=== PATIENT | male | born 1950 | race Caucasian/White ===

== ENCOUNTER → 2016-10-30 | Outpatient (CLI) | payer BC ==
[~2016-10-30] MED LIST: ASPCH81X PO; CHOL100010 PO; SIMV20TA2 PO; VITA400C15 PO
--- NOTE | 2016-10-30 15:29 | DIAGNOSTIC IMAGING REPORT ---
TWO VIEW CHEST CLINICAL HISTORY: Cough. FINDINGS: PA and lateral chest radiographs are compared to study dated 06/21/2015. The heart is mildly enlarged. The pulmonary vasculature is noncongested. Platelike atelectasis is present at both lung bases. There is no airspace consolidation typical for pneumonia or pleural effusion. There is no pneumothorax. The bony thorax appears intact. IMPRESSION: Mild cardiac enlargement and bibasilar atelectasis. No acute cardiopulmonary abnormality is seen. Electronically signed by: Jatin Bruner M.D. 10/30/2016 3:28 PM Dictated Date/Time: 10/30/2016 3:27 PM
== END | disposition home or self-care (01) ==
LOC: C.RAD1850 15:15
PROVIDERS: ATTEND Family Medicine
DX: R05 Cough (principal)

== ENCOUNTER 2019-04-23 04:55 | Inpatient (IN) ==
--- NOTE | 2019-04-02 15:57 | PAT Medication Instructions ---
Medication Instructions Date of Service April 02, 2019 Home Medications aspirin [Aspirin Low Dose] 81 mg PO Q2D atorvastatin 20 mg PO HS cholecalciferol (vitamin D3) [Vitamin D3] 2,000 unit PO Q2D ranitidine HCl 150 mg PO QAM Continue as directed aspirin [Aspirin Low Dose] 81 mg PO Q2D DO NOT take the morning of surgery cholecalciferol (vitamin D3) [Vitamin D3] 2,000 unit PO Q2D ranitidine HCl 150 mg PO QAM Take evening before surgery atorvastatin 20 mg PO HS Other Notes If you have any questions please call us at [phone] or [phone] or [phone] or [phone]
--- NOTE | 2019-04-04 10:30 | Anesthesiology Consultation ---
Date of Service April 04, 2019 Assessment & Plan (1) Encounter for pre-operative examination: - PCP: 03/28/19: Hernandez clearance for non-cardiac exam shows "low risk for adverse events." ASCVD score shows intermediate risk for 10 year cardiac events." Chart Review Chart Review: Pending: Refer to Additional Notes / Consult section (pending preop testing (labs, CXR)) and Patient seen in Pre Admission Testing Teaching & Discussion Pre-Anesthesia Teaching/Discussion Notes: Instructed NPO after midnight before surgery,except medications with 15 cc of water. Medication instructions provided according to the PAT guidelines. History Surgery Operation Date: 04/23/19 09:00 Proposed Procedures p Left Total Knee Arthroplasty - Julio Raymundo MD Height/Weight Height: 6 ft Weight: 100.2 kg Allergies Allergy/AdvReac Type Severity Reaction Status Date / Time calamine Allergy Unknown worsened Verified 03/31/19 10:22 rash Medications Home Medications Medication Instructions Recorded Confirmed Last Taken aspirin [Aspirin Low Dose] 81 mg PO Q2D 03/31/19 03/31/19 Unknown atorvastatin 20 mg PO HS 03/31/19 03/31/19 Unknown cholecalciferol (vitamin D3) 2,000 unit PO Q2D 03/31/19 03/31/19 Unknown [Vitamin D3] ranitidine HCl 150 mg PO QAM 03/31/19 03/31/19 Unknown Past Medical History Medical History CVA (cerebral vascular accident) evidence of old event noted on MRI at age 17= no residual effects Crohn's disease stable Deep vein thrombosis 15+ years ago (LLE) s/p traveling long distance- AC x 6 months; 2011 s/p right knee surgery- AC x 6 months GERD (gastroesophageal reflux disease) controlled Hyperlipidemia Pulmonary embolism 15+ years ago s/p traveling long distance- AC x 6 months Exercise / Class Metabolic Activity II 4-5 Yardwork/Stairs/Walk up hill Past Family History Family History Father Family history of diabetes mellitus Brother FHx: prostate cancer Hodgkin disease Sister FHx: thyroid cancer Other No family history of adverse response to anesthesia Past Surgical History Surgical History H/O hemorrhoidectomy H/O knee surgery right knee tendon and quadricep repair (2011) H/O reduction of closed dislocation left shoulder H/O thumb surgery bilateral History of colonoscopy History of detached retina repair bilateral History of nasal septoplasty History of tonsillectomy x2 S/P ear surgery stapedectomy S/P inguinal hernia repair bilateral S/P tendon repair ring finger tendon repair Past Anesthesia History No Hx of Anesthesia Complications (except PONV x 1 episode) and No Family Hx of Anesthesia Complications History of PONV History of PONV (x 1 episode) and Hx of Motion Sickness (remote hx) Social History Smoking Status: Former smoker tobacco type: cigarettes Do You Dip or Chew Tobacco: No Smoking End Date: Quit 1978 Hx Alcohol Use: Yes Alcohol type: wine alcohol intake frequency: a few times a week Hx Substance Use: No substance use type: does not use Review of Systems Reflux controlled. URI symptoms significantly improved. Patient denies chest pain, shortness of breath, dyspnea on exertion, wheezing, palpitations. Physical Exam Vital Signs VITALS BP 118/79 P 83 TEMP 98.1 SP02 93%RA RESP 16 PHYSICAL Full neck and c-spine range of motion. Full TMJ range of motion. TMD 3 finger breaths Mallampati Score 1 Dentition: missing molar, crowns on sides/upper front left Lungs: clear throughout to auscultation Cardiac: regular rate and rhythm, no murmurs noted Spine: normal Carotid arteries: negative bruit Extremities: no edema Testing Laboratory Results 03/27/19 NA 141 K 4.2 CL 108H HCO3 25 BUN 17 CREAT 0.91 GLUCOSE 94 HGBA1C 5.6% Electrocardiogram Date: 12/27/18 SR with PAC's at 98bpm. Suggestive RVCD
--- NOTE | 2019-04-04 11:22 | XRay Report ---
XR chest Pre-admission PA/Lat CLINICAL HISTORY: 69 years-old Male presenting with preoperative assessment. TECHNIQUE: PA and lateral views of the chest were obtained. COMPARISON: 10/30/2016. FINDINGS: Cardiomediastinal silhouette normal. Lungs mildly hyperinflated. No focal opacity. No pleural effusio n or pneumothorax. On the exaggerated thoracic kyphosis with a mild compression deformity at the thor acolumbar junction similar to prior exam. Upper abdomen normal. IMPRESSION: 1. No acute cardiopulmonary disease. Electronically signed by: Luis Enrique Gupta M.D. 04/04/2019 11:20 AM
[2019-04-04 12:17] LABS: Basophils # (auto) 0.02 K/uL (0-0.2); Basophils % (auto) 0.3 %; Eosinophils # (auto) 0.24 K/uL (0-0.5); Eosinophils % (auto) 3.6 %; Hematocrit (blood only) 45.3 % (42-52); Immature Granulocytes # (auto) 0.01 K/uL (0.00-0.02); Immature Granulocytes % (auto) 0.2 %; Lymphocytes # (auto) 1.24 K/uL (1.2-3.4); Lymphocytes % (auto) 18.8 %; Mean Corpuscular Hemoglobin 32.9 pg (25-34); Mean Corpuscular Hgb Conc 35.3 g/dL (32-36); Mean Corpuscular Volume 93.2 fL (80-100); Mean Platelet Volume 10.2 fL (7.4-10.4); Monocytes # (auto) 0.58 K/uL (0.11-0.59); Monocytes % (auto) 8.8 %; Neutrophils # (auto) 4.49 K/uL (1.4-6.5); Neutrophils % (auto) 68.3 %; Platelet Count 182 K/uL (130-400); RDW Coefficient of Variation 12.8 % (11.5-14.5); RDW Standard Deviation 43.7 fL (36.4-46.3); Red Blood Count 4.86 M/uL (4.7-6.1); White Blood Count 6.58 K/uL (4.8-10.8)
[2019-04-04 12:18] LABS: Appearance Urine Clear (Clear); Bilirubin Urine Negative (Negative); Blood Urine Negative (Negative); Color Urine Yellow; Glucose Urine UA Negative (Negative); Ketones Urine Negative (Negative); Leukocyte Esterase Urine Negative (Negative); Nitrite Urine Negative (Negative); Protein Urine Negative (Negative); Specific Gravity Urine 1.022 (1.000-1.030); Urobilinogen Urine Negative (Negative); pH Urine 5.5 (4.5-7.5)
[2019-04-04 12:34] LABS: INR 1.1 (0.9-1.1); Partial Thromboplastin Ratio 0.9; Partial Thromboplastin Time 24.5 Seconds (21.0-31.0); Prothrombin Time 10.8 Seconds (9.0-12.0)
--- NOTE | 2019-04-08 16:39 | History and Physical Report ---
DATE OF ADMISSION: 04/23/2019 CHIEF COMPLAINT: Left knee pain. HISTORY OF PRESENT ILLNESS: This 69-year-old white male presents to the office with complaints of longstanding history of left knee pain. It has become worse with time. The symptoms have been present for over 2 years. It is worse when he sits or rises from a chair. He also has significant difficulty going up and down steps. No pain at rest. Pain is affecting his ADLs. No numbness or tingling. He notes occasional night pain. No significant intraarticular effusions. He has tried conservative care measures including activity modification, oral pain medication, and oral anti-inflammatories without lasting relief. He elects to proceed with left total knee arthroplasty in hopes of alleviating his discomfort. No numbness or tingling. Preoperative imaging has been obtained. PAST MEDICAL HISTORY: Significant for elevated cholesterol, history of PE in 2002, history of DVT in 2011, recent cold, history of stroke at age 17 in 1966, GERD, history of psoriasis, decreased hearing, seborrheic keratosis, history of skin cancer, Crohn's disease, benign paroxysmal positional vertigo, and dysmetabolic syndrome X. PAST SURGICAL HISTORY: Right ring finger surgery x2, tonsillectomy, herniorrhaphy x2, hemorrhoidectomy, bilateral thumb surgery, right knee quadriceps tendon repair, stapedectomy, dental extractions, vein stripping, appendectomy, colonoscopy. FAMILY HISTORY: Significant for anemia, aortic aneurysm in his father, aplastic anemia, arthritis, brain aneurysm in his brother, cancer, Crohn's disease, stroke, diabetes, heart disease, hemochromatosis, hypertension, Hodgkin's disease in his brother, prostate cancer, stomach cancer in his father, stroke in his brother and father, throat cancer in his brother and thyroid cancer in his sister. Sister, father, brother and mother are all . ALLERGIES: NKDA. CURRENT MEDICATIONS: Aspirin 81 mg every other day, atorvastatin 20 mg p.o. at bedtime, Excedrin p.r.n., ibuprofen 400 mg q. 6 hours p.r.n. pain, Vitamin D3 daily. SOCIAL HISTORY: The patient is . Employed. No tobacco use, quit in 1978. Occasional ETOH use. REVIEW OF SYSTEMS: A total of 10 systems are reviewed and are significant only for above stated conditions. PHYSICAL EXAMINATION: VITAL SIGNS: Temperature 36.6, pulse 88, BP 118/82, O2 sat 95% on room air, height 179.5 cm, weight 100.8 kilograms. GENERAL: Well-developed, well-nourished elderly white male in no acute distress. Sitting in a chair. Alert and oriented. SKIN: Warm and dry with good turgor. No rashes or lesions. No ecchymosis or erythema. HEENT: Normocephalic, atraumatic. Eyes PERRLA, EOMI. Nares patent bilaterally without turbinate enlargement. Oropharynx without erythema or exudate. No lesions noted. Uvula midline. Oral mucosa moist. Hearing aids are present. HEART: RRR. No MGR. LUNGS: Clear to auscultation bilaterally. No crackles, rhonchi or wheezing. Good air movement. ABDOMEN: Bowel sounds present x4, soft, nontender. No organomegaly. No masses. MUSCULOSKELETAL: The patient has full terminal extension of the left knee. Flexion to greater than 100 degrees. Strength is 5/5 with good quad tone. No significant intraarticular effusion today. Strength is 5/5 for resisted flexion and extension. He has focal discomfort with palpation over the medial joint line. No lateral joint line discomfort today. Peripatellar discomfort with crepitus associated with motion. Normal MCL and LCL stressing. No laxity. No defect in the patellar tendon or quadriceps tendon. Ambulatory with a normal gait. NEUROLOGIC: Cranial nerves II through XII are intact. Gross sensation is intact across the left leg by soft touch. Peripheral pulses are 2+. DATA: Radiographic imaging previously obtained shows medial joint space narrowing. He has bone on bone in the patellofemoral compartment. There is end-stage DJD. Periarticular osteophytes and subchondral sclerosis are also noted. Chondrocalcinosis is present within the compartments. IMPRESSION: Left knee end-stage degenerative joint disease. PLAN: Postoperative prescriptions for Percocet and Coumadin will be provided at discharge from the hospital. Anticipate discharge to home with home health services. TXA will be used topically given his previous PE and DVT. Prescription was provided for a walker. Preoperative lab work and chest x-ray have been ordered. Preoperative EKG was already obtained by his PCP. Medical clearance has already been obtained.
[2019-04-23] MEDS ORDERED: LR 60ML/HR IV SCH (06:00)
[2019-04-23] MEDS ORDERED: TRANEXAMIC ACID 1,000 MG x 1 **For Topical Use TOP SCH (06:00)
[2019-04-23] MEDS ORDERED: ROPIVACAINE 0.5% HCL/PF 150 MG, BUPIVACAINE 0.5% MPF 30 ML, EPINEPHrine 0.15 MG, Ketoro... INFIL SCH (06:00)
[2019-04-23] MEDS ORDERED: LR 500ML BOLUS, THEN 15ML/HR IV SCH (06:00)
[2019-04-23] MEDS ORDERED: CEFAZOLIN 2000MG 2,000 MG/15 ML SYR IV SCH (06:00)
[2019-04-23] MEDS ORDERED: BUPIVACAINE 0.5 % 5 MG/1 ML PF 10ML VIAL ONE (06:24)
[2019-04-23] MEDS ORDERED: ROPIVACAINE 0.5% 5 MG/ML 30 ML VIAL ONE (06:25)
[2019-04-23] MEDS ORDERED: ORTHO JOINT ANESTHETIC ONE (06:36)
--- NOTE | 2019-04-23 06:36 | History & Physical Bridge Note ---
Date of Service April 23, 2019 History & Physical Bridge Note I have examined the patient, reviewed the History & Physical and in the interval since the performance of the History & Physical I have noted the following changes of clinical significance:consent obtained. no changes noted
[2019-04-23] MEDS ORDERED: MIDAZOLAM HCL 1 MG/ML 2ML VIAL ONE (06:40)
[2019-04-23] MEDS ORDERED: KETOROLAC 30 MG/ML VIAL IV PRN (07:00)
[2019-04-23] MEDS ORDERED: HYDROmorphone INJ 1 MG/ML SYRINGE IV PRN (07:00)
[2019-04-23] MEDS ORDERED: ePHEDrine sulfate 50 MG/ML AMP IV PRN (07:00)
[2019-04-23] MEDS ORDERED: ATROPINE SULFATE 0.1 MG/ML 10ML SYR IV PRN (07:00)
[2019-04-23] MEDS ORDERED: ONDANSETRON INJ 2 MG/ML 2 ML VIAL IV PRN ×2 (07:00→09:29)
[2019-04-23] MEDS ORDERED: KETAMINE HCL INJ 50 MG/ML 10 ML VIAL ONE (07:17)
[2019-04-23] MEDS ORDERED: PROPOFOL IV EMULSION 10 MG/ML 20 ML VIAL IV ONE ×2 (07:31→07:55)
[2019-04-23] MEDS ORDERED: GLYCOPYRROLATE 0.2 MG/ML VIAL ONE (07:31)
[2019-04-23] MEDS ORDERED: LIDOCAINE HCL 2% 2 ML VIAL/AMP(20MG/ML) INFIL ONE (07:31)
[2019-04-23] MEDS ORDERED: fentaNYL citrate 100 MCG/2 ML VIAL ONE (08:08)
--- NOTE | 2019-04-23 08:29 | Post Operative Brief Note ---
Immediate Post Op Note v1 Date of Surgery April 23, 2019 Pre & Post Diagnosis Operation Date: 04/23/19 07:00 Pre-Op Diagnosis: Left Knee End-Stage Degenerative Joint Disease Post-Op Diagnosis: Left Knee End-Stage Degenerative Joint Disease I identified the patient and participated in the time-out.: Yes Procedure Operation Date: 04/23/19 07:00 Actual Procedures p Left Total Knee Arthroplasty(Left) - Julio Raymundo MD Surgeon Julio Raymundo MD Hand Drawer In ghada/kamar Estimated Blood Loss 100 Findings Consistent with Post-Op Diagnosis
--- NOTE | 2019-04-23 08:33 | Operative Report ---
Post Operative Report Pre & Post Diagnosis Operation Date: 04/23/19 07:00 Pre-Op Diagnosis: Left Knee End-Stage Degenerative Joint Disease Post-Op Diagnosis: Left Knee End-Stage Degenerative Joint Disease I identified the patient and participated in the time-out.: Yes Procedure Operation Date: 04/23/19 07:00 Actual Procedures p Left Total Knee Arthroplasty(Left) - Julio Raymundo MD Surgeon Julio Raymundo MD Verification Manager ghada/kamar Estimated Blood Loss 100 Findings Consistent with Post-Op Diagnosis Specimens as per the procedure notes Complications none Disposition Accompanied Patient To Recovery: Yes Disposition: Recovery Room Description of Procedure Supine, standard prep and drape, tourniquet control, time out Left Total Knee Arthroplasty Please see Dr Raymundo's procedure notes for specific details I was present throughout the case, assisted for wound closure and transferred the patient to PACU in stable condition I attest to the content of the Intraoperative Record and any orders documented therein. Any exceptions are noted below.
--- NOTE | 2019-04-23 08:39 | Operative Report ---
Post Operative Report Pre & Post Diagnosis Operation Date: 04/23/19 07:00 Pre-Op Diagnosis: Left Knee End-Stage Degenerative Joint Disease Post-Op Diagnosis: Left Knee End-Stage Degenerative Joint Disease I identified the patient and participated in the time-out.: Yes Procedure Operation Date: 04/23/19 07:00 Actual Procedures p Left Total Knee Arthroplasty(Left) - Julio Raymundo MD Surgeon JUAN ALBERTO Raymundo MD It Application Development Manager ghada/kamar Estimated Blood Loss 100 Findings Consistent with Post-Op Diagnosis Specimens see operative report Drains none Complications none Disposition Accompanied Patient To Recovery: Yes Disposition: Recovery Room Indications This 69-year-old white male presented to the office with complaints of intractable left knee pain. He had left knee pain for several years. Pain became worse with time. He tried conservative care measures without lasting improvement. He elected to proceed with surgical intervention after being educated about potential risks and outcomes. Preoperative imaging was obtained. Description of Procedure Patient was administered a spinal anesthetic and then taken to the operating room where he was given sedation. He was prepped and draped in the usual sterile fashion. Please see Dr. Raymundo's operative report for specifics of the procedure. I was present for the entire case from initial patient positioning through final wound closure. Assistance was provided in tissue retraction, hemostasis, trial implant placement, final implant placement, and fi nal wound closure. Patient was taken to the recovery room in satisfactory condition. I attest to the content of the Intraoperative Record and any orders documented therein. Any exceptions are noted below.
--- NOTE | 2019-04-23 08:41 | Operative Report ---
DATE OF OPERATION: 04/23/2019 PREOPERATIVE DIAGNOSES: Osteoarthritis, left knee, severe patellofemoral disease. POSTOPERATIVE DIAGNOSES: Osteoarthritis, left knee, severe patellofemoral disease. OPERATION PERFORMED: Cemented left total knee replacement. PERIOPERATIVE SITUATION: Medically cleared male who has had decades of conservative management for his left knee pain. At this point in time, he is at his wits end and states he cannot continue to endure the pain that he has. His x-rays reveal severe patellofemoral disease, moderate tibial femoral compartment disease. DESCRIPTION OF PROCEDURE: The patient was appropriately identified, site verified, consent verified. Antibiotics confirmed as being given. The left lower extremity was prepped and draped in usual routine fashion. Tourniquet inflated to 300 mmHg after exsanguination of limb with a rubber Esmarch bandage for a total of about 50 minutes. Midline exposure utilized. Parapatellar arthrotomy performed. Synovectomy completed. Minimal lateral release required knee flexed grade 4 disease over the entire anterior distal femur and the entire patella with marked tracking and grooving on both surfaces. There was grade 4 disease of the weightbearing surface of lateral femoral condyle. The medial compartment was relatively well preserved. The menisci were excised and cruciates were excised. The tibia was subluxated. Distal femur was then resected 12 mm, proximal tibia 4 mm, the extension gap was excellent. Femur was sized between a 5 and 4, was measured 5 cut 4. There was no notching. The flexion gap was then checked. It was excellent. The box cut was then made and a size 4 fit well. The tibia was then broached and reamed to size 4 and a 10 mm spacer offered excellent stability throughout the entire range including mid range flexion. Patella tracked well. The patella was resected leaving 16 mm and a 41 seating trial made and then tracked well. The knee was then injected with the Orthomix. All implants were removed. Posterior capsule injected, knee irrigated with TXA for 2 minutes and then Pulsavac and Betadine, then Pulsavac and then the permanent implants cemented into position, tibia, femur and patella in that sequence. After 12 minutes, the tourniquet deflated. Bleeding points controlled with electrocautery. After 2 more minutes and the knee was then flexed. The spacer removed. The wound irrigated. Minor cement removal required and the permanent liner seated. The knee irrigated one more time with Betadine Pulsavac and then closed with #2-0 Vicryl and stainless steel clips. Appropriate dressing applied. ESTIMATED BLOOD LOSS: 100 mL. PATHOLOGY: Pending on bone. DVT prophylaxis with Eliquis starting tomorrow 24 hours postop. The patient has a remote history of DVT. SUMMARY OF IMPLANTS: Size 4 posterior cruciate substituting femur, size 4 mobile bearing tray, size 41 patella, size 4 spacer, 10 mm thick posterior cruciate substituting, 2 bags of Palacos G cement. Again operation is cemented left total knee replacement and procedure as noted. I attest to the content of the Intraoperative Record and any orders documented therein. Any exception s are noted below.
--- NOTE | 2019-04-23 08:54 | XRay Report ---
LEFT KNEE 2 VIEWS History: Left total knee arthroplasty. Degenerative arthritis. Postop. FINDINGS: The patient is status post a left total knee arthroplasty. The hardware is intact. No fract ure or dislocation. Skin karri are in place. IMPRESSION: Left total knee arthroplasty. No evidence for hardware complication. Electronically signed by: Mehrdad Valerio M.D. 04/23/2019 8:53 AM
--- NOTE | 2019-04-23 09:08 | Anesthesiology Progress Note ---
Date of Service April 23, 2019 Anesthesia Post Procedure Vital Signs Vital Signs: Temp Pulse Pulse Pulse Resp BP BP 04/23/19 09:00 36.2 C L 70 17 104/67 04/23/19 08:50 72 17 103/74 04/23/19 08:40 95 H 18 109/77 04/23/19 08:31 36.1 C L 100 H 14 110/78 04/23/19 05:39 36.5 C 67 67 18 132/87 132/87 Pulse Ox 04/23/19 09:00 95 04/23/19 08:50 94 04/23/19 08:40 95 04/23/19 08:31 93 04/23/19 05:39 95 Transfer of Care Handoff Completed per policy Notes Mental Status: alert / awake / arousable Patient Amnestic to Procedure: Yes Nausea / Vomiting: adequately controlled Pain: adequately controlled Airway Patency, RR, SpO2: stable & adequate BP & HR: stable & adequate Hydration State: stable & adequate Neuraxial Anesthesia: was administered and sensory block is resolving Anesthetic Complications: no major complications apparent
[2019-04-23] MEDS ORDERED: TAMSULOSIN HCL 0.4 MG CAP PO PRN (09:29)
[2019-04-23] MEDS ORDERED: METOCLOPRAMIDE HCL INJ 5 MG/ML 2 ML VIAL IV PRN (09:29)
[2019-04-23] MEDS ORDERED: ASPIRIN 81 MG ECTAB PO SCH (09:29)
[2019-04-23] MEDS ORDERED: MAGNESIUM HYDROXIDE SUSP 30 ML UDC PO PRN (09:29)
[2019-04-23] MEDS ORDERED: NALOXONE HCL 0.4 MG/1 ML VIAL/CARP IV PRN (09:29)
[2019-04-23] MEDS ORDERED: DiphenhydrAMINE HCL 50 MG/ML VIAL IV PRN (09:29)
[2019-04-23] MEDS ORDERED: HYDROmorphone INJ 0.5 MG/0.5 ML SYR IV PRN (09:29)
[2019-04-23] MEDS ORDERED: ALUMINUM/MAGNESIUM SUSP 30 ML UDC PO PRN (09:29)
[2019-04-23] MEDS ORDERED: SODIUM CHLORIDE 0.9% 1000ML 1,000 ML IV SCH (09:29)
[2019-04-23] MEDS ORDERED: BISACODYL 10 MG SUPP PR PRN (09:29)
[2019-04-23] MEDS ORDERED: OXYCODONE HCL IR 5 MG TAB (IMMEDIATE RELEASE) PO PRN (09:29)
[2019-04-23] MEDS: MULTIVITAMIN TAB PO SCH (10:09)
[2019-04-23] MEDS: KETOROLAC TROMETHAMINE 15 MG/ML VIAL IV SCH ×3 (10:10→20:24)
[2019-04-23] MEDS: DOCUSATE SODIUM 100 MG CAP PO SCH ×2 (10:10→20:23)
--- NOTE | 2019-04-23 11:08 | Progress Note ---
DATE: 04/23/2019 SUBJECTIVE: Doing well up on the floor. Has some mild nausea but ate some of his breakfast and drank a lot of water, is not having any vomiting or emesis. Denies any chest pain, shortness of breath, fever or chills. OBJECTIVE: Vital signs are stable. He is afebrile. Wound dressing is clean, dry and intact. Neurovascular check of femoral sciatic nerve is normal. Can do a straight leg raise. Can do ankle plantar and dorsiflexion, same with the toes, inversion and eversion of the ankle. Postop x-rays look excellent. ASSESSMENT: Doing well. Continue postop care pathway. Mobilize, get out of bed in the next several hours and start on his own the range of motion exercises, knee immobilizer for the first 24-48 hours until his quad function is back to normal. Follow up in 2 weeks for staple removal. Discharge tomorrow. Will be discharged on anticoagulant tomorrow.
--- NOTE | 2019-04-23 11:24 | History and Physical Report ---
DATE OF ADMISSION: 04/23/2019 CHIEF COMPLAINT: Left knee pain. Potential discharge 04/24/2019. HISTORY OF PRESENT ILLNESS: A 69-year-old male admitted for elective left total knee replacement. Hospital course has been uneventful. At this point in time, he has no chest pain, shortness of breath, fever or chills. He has no emesis. Has some occasional nausea around his pain medications. PAST MEDICAL HISTORY: Remarkable for hypercholesterolemia, history of PE in 2002, history of DVT in 2011, recent cold, history of stroke at age 17, GERD, history of psoriasis, decreased hearing, seborrheic keratosis, history of skin cancer, Crohn disease, benign paroxysmal positional vertigo and dysmetabolic syndrome X. PAST SURGICAL HISTORY: Remarkable for finger surgery, tonsillectomy, herniorrhaphy, hemorrhoidectomy, thumb surgery, quadriceps tendon repair on the right knee, stapedectomy, dental extractions, vein stripping, appendectomy, colonoscopy and most recently his left total knee replacement. FAMILY HISTORY: Remarkable for anemia, aortic aneurysm, aplastic anemia, arthritis, brain aneurysm, cancer, Crohn disease, stroke, diabetes, heart disease, hemochromatosis, hypertension, Hodgkin disease, prostate cancer, stomach cancer, stroke in multiple family members, throat cancer in his brother, thyroid cancer in his sister. Sister, father, brother and mother are all . ALLERGIES: None. PREADMISSION MEDICATIONS: Include aspirin 81 mg every other day, atorvastatin 20 mg p.o. at bedtime, Excedrin, ibuprofen q.6 hours p.r.n., vitamin D. He will discontinue the ibuprofen. He will be placed on anticoagulant, likely Eliquis, will be determined tomorrow. SOCIAL HISTORY: The patient is , employed, does not use tobacco since 1978. Occasional alcohol use. REVIEW OF SYSTEMS: Noncontributory. ASSESSMENT: Status post left total knee replacement. Plan is to continue postoperative care pathway and discharge in the morning following physical therapy and occupational therapy.
[2019-04-23] MEDS: ORTHO WARFARIN NOMOGRAM SCH (12:22)
[2019-04-23] MEDS: ACETAMINOPHEN 500 MG TAB PO SCH ×2 (12:22→20:23)
[2019-04-23] MEDS: CEFAZOLIN 2000MG 2,000 MG/15 ML SYR IV SCH ×2 (14:35→22:04)
[2019-04-23] MEDS ORDERED: WARFARIN SOD 5 MG TAB PO SCH (16:00)
[2019-04-23] MEDS: FERROUS GLUCONATE 324 MG TAB PO SCH (17:22)
[2019-04-23] MEDS: ASCORBIC ACID 500 MG TAB PO SCH (17:22)
[2019-04-23] MEDS ORDERED: ATORVASTATIN 20 MG TAB PO SCH (21:00)
[2019-04-23] MEDS ORDERED: SENNA 8.6 MG TAB PO SCH (21:00)
[2019-04-24] MEDS: KETOROLAC TROMETHAMINE 15 MG/ML VIAL IV SCH (04:19)
[2019-04-24 05:44] LABS: Hematocrit (blood only) 37.7 % (42-52); Mean Corpuscular Hemoglobin 32.5 pg (25-34); Mean Corpuscular Hgb Conc 34.5 g/dL (32-36); Mean Corpuscular Volume 94.3 fL (80-100); Mean Platelet Volume 9.7 fL (7.4-10.4); Platelet Count 159 K/uL (130-400); RDW Coefficient of Variation 12.8 % (11.5-14.5); RDW Standard Deviation 43.8 fL (36.4-46.3); White Blood Count 9.89 K/uL (4.8-10.8)
[2019-04-24] MEDS: ACETAMINOPHEN 500 MG TAB PO SCH (05:46)
[2019-04-24 05:59] LABS: INR 1.1 (0.9-1.1); Prothrombin Time 11.4 Seconds (9.0-12.0)
[2019-04-24 06:25] LABS: BUN Creatinine Ratio 14.2 (10-20); Calcium 8.3 mg/dl (8.5-10.1); Creatinine Clr Calc Pharmacy 89.4 ml/min; Est GFR (African American) 93.8; Est GFR (Non-African American) 80.9; Potassium 3.8 mmol/L (3.5-5.1)
[2019-04-24] MEDS ORDERED: dexAMETHasone 10 MG in SYRINGE 0 ML IV SCH (08:00)
[2019-04-24] MEDS: ASCORBIC ACID 500 MG TAB PO SCH (08:13)
[2019-04-24] MEDS: DOCUSATE SODIUM 100 MG CAP PO SCH (08:13)
[2019-04-24] MEDS: MULTIVITAMIN TAB PO SCH (08:13)
[2019-04-24] MEDS: FERROUS GLUCONATE 324 MG TAB PO SCH (08:13)
--- NOTE | 2019-04-24 08:22 | Anesthesiology Progress Note ---
Date of Service April 24, 2019 Anesthesia Post Procedure Vital Signs Vital Signs: Temp Pulse Pulse Resp BP Pulse Ox 04/24/19 07:32 36.6 C 68 16 113/69 95 04/24/19 03:14 36.7 C 66 16 127/80 95 04/23/19 23:20 36.7 C 69 16 106/69 94 04/23/19 19:58 36.4 C L 64 17 109/70 96 04/23/19 15:02 36.4 C L 65 17 115/75 95 04/23/19 12:15 36.5 C 85 18 120/82 96 04/23/19 10:58 75 18 112/78 98 04/23/19 10:13 36.4 C L 74 18 118/79 95 04/23/19 09:45 71 18 105/72 98 04/23/19 09:15 36.4 C L 68 16 107/72 94 04/23/19 09:00 36.2 C L 70 17 104/67 95 04/23/19 08:50 72 17 103/74 94 04/23/19 08:40 95 H 18 109/77 95 04/23/19 08:31 36.1 C L 100 H 14 110/78 93 Notes Mental Status: alert / awake / arousable and participated in evaluation Patient Amnestic to Procedure: Yes Nausea / Vomiting: adequately controlled Pain: adequately controlled Airway Patency, RR, SpO2: stable & adequate BP & HR: stable & adequate Hydration State: stable & adequate Neuraxial Anesthesia: was administered and sensory block resolved Anesthetic Complications: no major complications apparent and Pt Satisfied with anesthetic care
[2019-04-24] MEDS: ORTHO WARFARIN NOMOGRAM SCH (08:31)
--- NOTE | 2019-04-24 09:24 | Orthopedic Progress Note ---
Date of Service April 24, 2019 Assessment & Plan (1) Status post total knee replacement, left: Patient's dressing was changed today by me. He will leave this in place until Sunday and then change daily as needed for soiling. He will be having home health for his INR lab draws. Prescription was provided. He was reminded of maximum flexion of 90 degrees. PT/OT today. Discharge to home after therapy has been completed. Prescriptions for Coumadin and Percocet have been sent to his pharmacy. He will use Coumadin 4 mg daily and have his blood rechecked on Sunday. Subjective Patient is seen in his room this morning. He is eating breakfast. is in attendance. He denies any chest pain, shortness of breath, nausea, vomiting, or abdominal pain. He states there is a tightness in his left leg, specifically around the upper thigh. It is in the location of his tourniquet. No other complaints at this point. Pain has been well managed. Review of Systems Review of Systems: Unchanged from preop Physical Exam Physical Exam: Patient's dressings are completely dry. Upon removal, he has no active bleeding. Randolph are intact. Wound edges are well approximated. No erythema or warmth. No drainage. Expected postoperative edema. No ecchymosis. Musculoskeletal: Patient has intact motor function to his hip, knee, and ankle. He is able to perform a straight leg raise. Full terminal extension. Flexion to around 40 degrees before he complains of tightness in his thigh. Neurologic: Gross sensation is intact across the left leg by soft touch. Peripheral pulses are 2+. Results & Data Vital Signs (Past 12 Hours) Vital Signs Temp Pulse Resp BP Pulse Ox 04/24/19 07:32 36.6 C 68 16 113/69 95 04/24/19 03:14 36.7 C 66 16 127/80 95 04/23/19 23:20 36.7 C 69 16 106/69 94 Laboratory Results H&H this morning are 13.0 and 37.7. INR is 1.1. PRP is unremarkable.
[2019-04-24] MEDS ORDERED: WARFARIN SOD 5 MG TAB PO SCH (16:00)
== END 2019-04-24 10:43 | disposition home health service (06) | DRG 470 ==
LOC: ASU 04:55 → 3E 08:37